=== PATIENT | female | born 1985 | race Caucasian/White ===

== ENCOUNTER 2020-11-21 07:27 | Emergency (ER) | payer OTHER ==
[~2020-11-21] VITALS: Ht 165.1 cm; Wt 127.0 kg
== END 2020-11-21 09:10 | disposition home or self-care (01) ==
LOC: ER 07:48
DX: U07.1 COVID-19 (principal); R06.02 Shortness of breath; R05.9 Cough, unspecified; T78.40XA Allergy, unspecified, initial encounter
CPT/HCPCS: 99283

== ENCOUNTER 2022-04-19 08:00 | Emergency (ER) | payer OTHER ==
[~2022-04-19] VITALS: Ht 165.1 cm; Wt 136.1 kg
[2022-04-19] MEDS ORDERED: FAMOTIDINE 20 MG TAB PO ONE (08:15)
[2022-04-19] MEDS ORDERED: DIPHENHYDRAMINE HCL 25 MG CAP PO ONE (08:15)
[2022-04-19] MEDS ORDERED: DEXAMETHASONE SOD PHOS 10 MG/1 ML VIAL IM ONE (08:15)
[2022-04-19] MEDS ORDERED: CEFDINIR300 MG PO (10:09)
== END 2022-04-19 10:13 | disposition home or self-care (01) ==
LOC: ER 08:08
DX: R50.9 Fever, unspecified (principal); J32.9 Chronic sinusitis, unspecified; R05.9 Cough, unspecified
CPT/HCPCS: 71045; 99283